=== PATIENT | female | born 2000 | race Caucasian/White ===

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

== ENCOUNTER → 2020-01-22 12:31 | Outpatient (CLI) | payer OTHER, MEDICAID, SELFPAY ==
[2018-06-24 08:27] VITALS: BMI 41.0
--- NOTE | 2020-01-22 | DI.US.S_ITS ---
ULTRASOUND OF RIGHT BREAST: 01/22/2020 CLINICAL: Mastodynia. No prior exams were available for comparison. Ultrasound of the right breast was performed on the area of interest. Aguilar scale images of the real-time examination were reviewed. IMPRESSION: NEGATIVE There is no sonographic evidence of malignancy. There is no sonographic abnormality seen in the right breast to correspond with the pain, however, clinical followup is recommended. This exam was interpreted at Station ID: [id number]. Electronically Signed By: Chary De La Torre M.D. lk/:01/22/2020 14:57:59 letter sent: Clinical Evaluation Ultrasound BI-RADS: 1 Negative
== END ==
PROVIDERS: Family Provider Pediatrics; PCP Pediatrics; Referring Provider Physician Assistant Medical; Visit Provider Physician Assistant Medical
DX: N64.4 Mastodynia (principal)
CPT/HCPCS: 76642

== ENCOUNTER 2021-03-11 21:42 | Emergency (ER) | payer OTHER, MEDICAID, SELFPAY ==
[2018-06-24 08:27] VITALS: BMI 41.0
[2021-03-11 21:45] VITALS: BP 119/64; PULSE 73; RESP 20; TEMP 36.6; O2SAT 98
--- NOTE | 2021-03-11 21:45 | DI.RAD.S_ITS ---
PROCEDURE: XR ANKLE RT MIN 3V INDICATIONS: rolled ankle TECHNIQUE: 3 views of the ankle were acquired. COMPARISON: None. FINDINGS: Bones: No fractures or dislocations. Ankle mortise is normally aligned. No suspicious bony lesions. Soft tissues: No tibiotalar joint effusion. Achilles tendon appears normal. IMPRESSION: Right ankle without acute fracture or dislocation. If there is persistent clinical concern for occult fracture given adequate mechanism of injury, consider repeat imaging in 10-14 days. Dictated by: Reese Wei M.D. on 03/11/2021 at 22:50 Approved by: Reese Wei M.D. on 03/11/2021 at 22:51
--- NOTE | 2021-03-12 01:28 | ED_ITS ---
HPI - Extremity Injury (Lower) General Chief Complaint: Extremity Injury, Lower Stated Complaint: rt ankle injury Time Seen by Provider: 03/12/21 01:24 Source: patient Mode of arrival: Ambulatory History of Present Illness HPI Narrative: Patient is a 20-year-old female here for evaluation of a right ankle injury. She states that 2 days ago she was walking [place] when she rolled her right ankle. She has been able to walk on it since then but has had discomfort in she thinks things have worsened since then. No prior injuries. Has not tried anything for the symptoms prior to arrival. Related Data Home Medications Medication Instructions Recorded Confirmed etonogestrel 68 mg subdermal SUBDERMAL 10/18/19 10/18/19 implant (Nexplanon) Allergies Allergy/AdvReac Type Severity Reaction Status Date / Time hydromorphone [From Dilaudid] Allergy Unknown Verified 10/18/19 08:24 Penicillins Allergy Unknown Verified 10/18/19 08:24 acetaminophen AdvReac Intermediate Nausea Verified 10/18/19 08:24 [From Tylenol-Codeine #3] codeine AdvReac Intermediate Nausea Verified 10/18/19 08:24 [From Tylenol-Codeine #3] Review of Systems Constitutional Constitutional: Reports as per HPI Musculoskeletal Comments: Right ankle pain and swelling Integumentary/Breasts Comments: No bruising to the right ankle Neurologic Comments: No tingling to the right lower extremity Hematologic/Lymphatic On Anticoagulants: No Patient History Medical History Depression Paratubal cyst (~06/2018) Surgical History Hx of appendectomy Social History household members: family Smoking Status: Current every day smoker alcohol intake: never Smoking Status: Current every day smoker tobacco type: vaping Substance Use Type: does not use Exam Initial Vital Signs Initial Vital Signs: Vital Signs Temperature 97.9 F 03/11/21 21:45 Pulse Rate 73 03/11/21 21:45 Respiratory Rate 20 03/11/21 21:45 Blood Pressure 119/64 03/11/21 21:45 Pulse Oximetry 98 03/11/21 21:45 Const General: cooperative and healthy appearing HENKY Head: normal to inspection and normocephalic Cardio Pulses: dorsalis pedis present on the right Skin General: no rashes or lesions noted Neuro Gait: normal gait Sensory Exam: no sensory deficits noted Extrem Other: Patient has no proximal fibula tenderness. Her right ankle is unremarkable except for tenderness inferior and posterior to the lateral malleolus. Procedures Orthopedic Splinting/Casting Injury #1: Side: right Lower Extremity Injury Location: ankle Lower Extremity Immobilizer: Raj wrap Post splinting neuro exam: intact Post splinting vascular exam: intact Placed by: Nursing Course Orders Ordered: ED Orders 03/11/21 21:45 XR ankle RT min 3V Stat Vital Signs Vital signs: Vital Signs - 8 hr 03/11/21 21:45 Temperature 97.9 F Pulse Rate 73 Respiratory Rate 20 Blood Pressure 119/64 Pulse Oximetry 98 MDM - Extremity Injury (Lower) Imaging Data Extremity x-ray #1: Radiologist's Impression: [address] [id number] ReportSigned Patient: Laura Martinez [facility]#: [id number]: 2000Acct:[id number]/Sex: 20 / FDate of Service: 03/11/21Loc: EDAccession Number: [id number] Procedure: XR ankle RT min 3V Ordering Provider: Jhonatan Abbasi D.O. PROCEDURE: XR ANKLE RT MIN 3V INDICATIONS: rolled ankle TECHNIQUE: 3 views of the ankle were acquired. COMPARISON: None. FINDINGS: Bones: No fractures or dislocations. Ankle mortise is normally aligned. No suspicious bony lesions. Soft tissues: No tibiotalar joint effusion. Achilles tendon appears normal. IMPRESSION: Right ankle without acute fracture or dislocation. If there is persistent clinical concern for occult fracture given adequate mechanism of injury, consider repeat imaging in 10-14 days. Dictated by: Reese Wei M.D. on 03/11/2021 at 22:50 Approved by: Reese Wei M.D. on 03/11/2021 at 22:51 [facility] Narrative Medical decision making narrative: Patient is neurovascularly intact. She is ambulatory. The x-ray shows no signs of fracture. She was placed in an Raj bandage and was given care instructions and return precautions. She expressed understanding and agreement. Discharge Plan Departure Patient Disposition: Home Clinical Impression: Ankle sprain and strain Instructions: DI for Ankle Sprain, How To Perform RICE (Rest, Ice, Compress, Elevate), How to Apply an Elastic Wrap on Ankle Activity Restrictions/Additional Instructions: There were no fractures noted on the x-rays which means you can walk on your leg as tolerated. I do recommend you keep your foot elevated and use ice several times a day. You can use the elastic bandage/ankle brace for support. Contact your primary provider for follow-up. Return to the emergency department for any new or worsening symptoms Prescriptions: No Action Nexplanon 68 mg implant subdermal RF: 0 Referrals: Cecy Sullivan MD [Primary Care Provider] -
== END 2021-03-12 01:53 | disposition home or self-care (01) ==
PROVIDERS: Emergency Provider Emergency Medicine; Family Provider Pediatrics; PCP Pediatrics
DX: S93.401A Sprain of unspecified ligament of right ankle, initial encounter (principal); X58.XXXA Exposure to other specified factors, initial encounter; Y93.01 Activity, walking, marching and hiking
CPT/HCPCS: 73610; 99282; 99283

== ENCOUNTER 2021-05-02 21:57 | Emergency (ER) | payer OTHER, MEDICAID, SELFPAY ==
[2018-06-24 08:27] VITALS: BMI 41.0
[2021-05-02 22:23] VITALS: BP 107/63; PULSE 60; RESP 18; TEMP 36.1; O2SAT 96
[2021-05-02] MEDS: SODIUM CHLORIDE 0.9% 1,000 ML 150 ML IV (23:12)
[2021-05-02 23:15] LABS: Add Manual Diff / Slide Review NO; Basophils Absolute Auto 100 /uL (0-100); Basophils Percent Auto 1.1 % (0-2); Eosinophils Absolute Auto 200 /uL (0-450); Eosinophils Percent Auto 2.4 % (2-4); Hematocrit 40.8 % (36-46); Hemoglobin 13.2 g/dL (12.0-16.0); Lymphocytes Absolute Auto 2600 /uL (1100-4500); Lymphocytes Percent Auto 34.1 % (25-40); Mean Corpuscular HGB Conc 32.3 % (30-36); Mean Corpuscular Hemoglobin 26.7 PG (26-34); Mean Corpuscular Volume 82.8 fL (80-100); Monocytes Absolute Auto 500 /uL (0-900); Monocytes Percent Auto 6.4 % (3-14); Neutrophils Absolute Auto 4200 /uL (1500-7000); Platelet Count 230 X10^3/uL (150-400); Red Blood Cell Count 4.93 X10^6/uL (4.0-5.2); Red Cell Distribution Width 14.1 % (11.6-14.8); White Blood Cell Count 7.5 X10^3/uL (4.5-11.0)
[2021-05-02 23:22] LABS: Alanine Aminotransferase 83 IU/L (<35); Albumin 4.4 g/dL (3.5-5.0); Albumin Globulin Ratio 1.4 (1.0-2.8); Alkaline Phosphatase 61 U/L (38-126); Aspartate Aminotransferase 51 IU/L (14-36); BUN Creatinine Ratio 16.7 (6-22); Bilirubin Total 0.4 mg/dL (0.2-1.3); Blood Urea Nitrogen 11 mg/dL (7-17); Calcium 9.3 mg/dL (8.4-10.2); Carbon Dioxide 25 mmol/L (22-32); Chloride 107 mmol/L (98-107); Estimated Glomerular Filt Rate > 60.0 mL/min (>60); Globulin 3.2 g/dL (1.7-4.1); Glucose 103 mg/dL (70-100); HEMOLYSIS < 15 (0-50); Lipase 85 U/L (23-300); Potassium 4.1 mmol/L (3.4-5.1); Sodium 139 mmol/L (137-145); Total Protein 7.6 g/dL (6.3-8.2)
--- NOTE | 2021-05-02 23:46 | ED_ITS ---
HPI - Nausea/Vomiting/Diarrhea General Chief complaint: Abdominal Pain Stated complaint: RT LOWER PAIN BLEEDING Time Seen by Provider: 05/02/21 23:02 Source: patient Mode of arrival: Ambulatory Limitations: no limitations History of Present Illness HPI Narrative: 20-year-old female nonsmoker with history of menorrhalgia, right ovarian trouble and depression right lower quadrant pain for the past day or 2. She states it came on gradually and has been worsening in her right lower quadrant and sometimes spreads across to the midline. Her pain is worse when she moves and improves with rest. She states stabbing and crampy in nature. She feels a bit weak and lightheaded as well as fatigued. She states that she has had vaginal bleeding for 3 of the past 4 weeks, it had slowed a bit after a visit to Gynecology, and ultrasound which was largely unremarkable, and a prescription of medroxyprogesterone. She just finished that 2 days ago and her bleeding and pain started soon thereafter. She is bleeding heavier than she ever has and states it takes about 30 minutes to saturate a super tampon and a pad and within an hour she soaks an adult diaper. She has been bleeding this heavily since yesterday. She has been NPO since 1400 Related Data Previous Rx's Medication Instructions Recorded medroxyprogesterone 10 mg tablet 10 mg PO DAILY #30 tab 05/01/21 medroxyprogesterone 10 mg tablet See Rx Instructions .ROUTE 05/03/21 .COMPLEX #74 tab Allergies Allergy/AdvReac Type Severity Reaction Status Date / Time hydromorphone [From Dilaudid] Allergy Unknown Verified 10/18/19 08:24 Penicillins Allergy Unknown Verified 10/18/19 08:24 acetaminophen AdvReac Intermediate Nausea Verified 10/18/19 08:24 [From Tylenol-Codeine #3] codeine AdvReac Intermediate Nausea Verified 10/18/19 08:24 [From Tylenol-Codeine #3] Review of Systems Review of Systems Narrative: GENERAL: Denies chills, fatigue, malaise, fever, sweats. HEENT: Denies sinus pain, ear pain, sore throat, difficulty swallowing, d izziness. RESPIRATORY: Denies dyspnea, cough, wheezing, hemoptysis, sputum. CARDIOVASCULAR: Denies chest pain, palpitations, orthopnea, edema, GASTROINTESTINAL: Denies nausea, vomiting, abdominal pain, diarrhea, constipation, melena. : See HPI MUSCULOSKELETAL: denies weakness, joint pain, or bony pain SKIN: Denies rash, skin lesions, or other NEUROLOGIC: Denies weakness, headache, numbness, change in speech, confusion, seizures, incoordination. PSYCHIATRIC: No concerning psychosocial issues. 12 point review of systems is negative except for those stated above Patient History Medical History Depression Paratubal cyst (~06/2018) Surgical History Hx of appendectomy Social History household members: family Smoking Status: Current every day smoker alcohol intake: never Smoking Status: Current every day smoker tobacco type: vaping Substance Use Type: does not use Exam Narrative Exam Narrative: GENERAL: [20] year old patient appears stated age. Well- developed patient, in mild distress. HEAD: Atraumatic. Normocephalic. EYES: Pupils equal round and reactive. Extraocular motions intact. No scleral icterus. No injection or drainage. ENT: Nose without bleeding, purulent drainage. Throat without erythema, tonsill ar hypertrophy or exudate. Airway patent. NECK: Trachea midline. Non tender CARDIOVASCULAR: Regular rate and rhythm without murmurs, gallops, or rubs. RESPIRATORY: Clear to auscultation. Breath sounds equal bilaterally. No wheezes, rales, or rhonchi. GASTROINTESTINAL: Abdomen soft, non-tender, nondistended. PELVIC: Brisk dark red bleeding vaginally, fresh blood on thighs and on sheet. Performed with patient permission and female nursing bacteriology research assistant at the bedside EXTREMITIES: No edema or joint tenderness. BACK: Nontender without deformity or crepitance. No flank tenderness. NEURO: AOx3. SKIN: No rash or erythema of visible areas Initial Vital Signs Initial Vital Signs: Vital Signs Temperature 96.9 F L 05/02/21 22:23 Pulse Rate 60 05/02/21 22:23 Respiratory Rate 18 05/02/21 22:23 Blood Pressure 107/63 05/02/21 22:23 Pulse Oximetry 96 05/02/21 22:23 Course Orders Ordered: ED Orders 05/02/21 23:04 Complete Blood Count AUTO DIFF Stat Comprehensive Metabolic Panel Stat Lipase Stat 05/03/21 00:01 US pelvic complete Stat 05/03/21 01:15 Urine Microscopic Stat Discontinued Medications Sodium Chloride (Normal Saline 0.9%) 1,000 mls @ 150 mls/hr IV CONT URSULA Last Admin: 05/02/21 23:12 Dose: 150 mls/hr Documented by: RONDA Ketorolac Tromethamine (Ketorolac 30 Mg/Ml Vial) 15 mg IV NOW ONE Stop: 05/02/21 23:53 Last Admin: 05/03/21 00:13 Dose: 15 mg Documented by: RONDA Medroxyprogesterone Acetate (Medroxyprogesterone Acetate 10 Mg Tablet) 20 mg PO NOW ONE Stop: 05/03/21 01:54 Last Admin: 05/03/21 02:14 Dose: 20 mg Documented by: LOGAN Ondansetron HCl (Ondansetron 4 Mg Odt Prepack) 1 bottle MISC SEEINSTR ONE Stop: 05/02/21 23:47 Last Admin: 05/03/21 01:07 Dose: Not Given Documented by: RONDA Consultations Consultation #1: Discussed with on-call gynecology, (Dr. Benavides) she has equally reassured by patient's stable vital signs and lab work. Recommends initiating medroxyprogesterone again, return precautions given and questions answered to her apparent satisfaction Vital Signs Vital signs: Vital Signs - 8 hr 05/02/21 22:23 05/03/21 02:19 Temperature 96.9 F L Pulse Rate 60 65 Respiratory Rate 18 20 Blood Pressure 107/63 99/56 L Pulse Oximetry 96 100 MDM - Nausea/Vomiting/Diarrhea Lab Data Result diagrams: 05/02/21 23:04 05/02/21 23:04 Labs: Lab Results 05/02/21 05/02/21 05/03/21 Range/Units 23:04 23:04 01:15 WBC 7.5 (4.5-11.0) X10^3/uL RBC 4.93 (4.0-5.2) X10^6/uL Hgb 13.2 (12.0-16.0) g/dL Hct 40.8 (36-46) % MCV 82.8 (80-100) fL MCH 26.7 (26-34) PG MCHC 32.3 (30-36) % RDW 14.1 (11.6-14.8) % Plt Count 230 (150-400) X10^3/uL Neut % (Auto) 56.0 (50-75) % Lymph % (Auto) 34.1 (25-40) % [place] % (Auto) 6.4 (3-14) % Eos % (Auto) 2.4 (2-4) % Baso % (Auto) 1.1 (0-2) % Neut # (Auto) 4200 (4631-4794) /uL Lymph # (Auto) 2600 (3804-3271) /uL [place] # (Auto) 500 (0-900) /uL Eos # (Auto) 200 (0-450) /uL Baso # (Auto) 100 (0-100) /uL Sodium 139 (137-145) mmol/L Potassium 4.1 (3.4-5.1) mmol/L Chloride 107 (98-107) mmol/L Carbon Dioxide 25 (22-32) mmol/L BUN 11 (7-17) mg/dL Creatinine 0.66 (0.52-1.04) mg/dL Estimated GFR > 60.0 (>60) mL/min BUN/Creatinine Ratio 16.7 (6-22) Glucose 103 H (70-100) mg/dL Calcium 9.3 (8.4-10.2) mg/dL Total Bilirubin 0.4 (0.2-1.3) mg/dL AST 51 H (14-36) IU/L ALT 83 H (<35) IU/L Alkaline Phosphatase 61 (38-126) U/L Total Protein 7.6 (6.3-8.2) g/dL Albumin 4.4 (3.5-5.0) g/dL Globulin 3.2 (1.7-4.1) g/dL Albumin/Globulin Ratio 1.4 (1.0-2.8) Lipase 85 (23-300) U/L Urine RBC 30-100/hpf H (0-5/HPF) Urine WBC None seen (0-5/HPF) Urine Bacteria None seen (None) Ur Culture Indicated? 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 I spoke with Dr. Benavides (Dr. Choudhury's partner) and she would like me to restart your medroxyprogesterone to be taken at as you had previously] *What to do: *Please continue to take your regular medications as directed. [x ] New medication prescriptions sent to your pharmacy: [[facility] ] [ ] New medication written as a paper prescription [ ] No new medications given *Please follow up with Dr. Choudhury as planned 2-3 days, Let them know you were seen in the Emergency Department and that we ask that you be seen in follow up. We will electronically transmit a record of today's note if your PCP is in our system *If you do not have a primary care provider please contact the [facility] Resource line at [phone]. They will ask some questions about your medical history and help get you set up with a doctor in the community. *Return to Emergency Department if you should have any new, worsening or concerning symptoms, such as [fever greater than 101 F, shaking chills, worsening pain, persistent vomitin, heavy bleeding sufficient to saturate a pad per hour for multiple hours Prescriptions: New medroxyprogesterone 10 mg tablet See Rx Instructions .ROUTE .COMPLEX Qty: 74 RF: 0 No Action medroxyprogesterone 10 mg tablet 10 mg PO DAILY Qty: 30 RF: 1 Referrals: Cecy Sullivan MD [Primary Care Provider] -
--- NOTE | 2021-05-03 00:01 | DI.US.S_ITS ---
PROCEDURE: US PELVIC COMPLETE INDICATIONS: HEAVY BLEEDING, RIGHT PELVIC PAIN TECHNIQUE: Real-time scanning was performed of the pelvic organs, with image documentation. Additional endovaginal scanning was necessary due to incomplete visualization of the adnexal and endometrial structures by transabdominal scanning. COMPARISON: [facility], US, US PELVIC COMPLETE, 09/20/2020, 15:47. FINDINGS: Uterus: Uterus is normal in size at 7.9 x 3.7 x 4.6 cm. The endometrium measures 15 mm in combined thickness. Ovaries: Right ovary measures 3.4 x 2.1 x 2.9 centimeter. Left ovary measures 3.0 x 1.7 x 2.7 centimeter. No suspicious mass. Normal spectral waveforms. Other: No pathologic free abdominal or pelvic fluid. IMPRESSION: No acute or suspicious abnormality. Endometrial thickness measures at the upper limits of normal. Note: No significant discrepancy in the preliminary report. Dictated by: Guy Zambrano M.D. on 05/03/2021 at 7:32 Approved by: Guy Zambrano M.D. on 05/03/2021 at 7:36
[2021-05-03] MEDS: KETOROLAC 30 MG/ML VIAL 15 MG IV (00:13)
[2021-05-03 01:34] LABS: Bacteria Urine None Seen; WBC Urine None Seen (0-5/HPF)
[2021-05-03 01:51] LABS: Culture Indicated Urine Cult Not Indicated; RBC Urine 30-100/HPF (0-5/HPF)
[2021-05-03] MEDS: MEDROXYPROGESTERONE ACETATE 10 MG TABLET 20 MG PO (02:14)
[2021-05-03 02:19] VITALS: BP 99/56; PULSE 65; RESP 20; O2SAT 100
--- NOTE | 2021-05-05 13:34 | PC.NURSE ---
late entry- per RN IV fluids were DC'd at 0200 prior to DC
== END 2021-05-03 02:21 | disposition home or self-care (01) ==
PROVIDERS: Emergency Provider Emergency Medicine; Family Provider Pediatrics; PCP Pediatrics
DX: N92.0 Excessive and frequent menstruation with regular cycle (principal); R10.31 Right lower quadrant pain
CPT/HCPCS: 36415; 76830; 76856; 80053; 81003; 81015; 83690; 85025; 96361; 96374; 99284; J1885

== ENCOUNTER 2021-05-04 16:00 | Emergency (ER) | payer OTHER, MEDICAID, SELFPAY ==
[2018-06-24 08:27] VITALS: BMI 41.0
[2021-05-04 16:15] VITALS: BP 127/74; PULSE 86; RESP 19; TEMP 36.8; O2SAT 99; BMI 45.4
[2021-05-04 17:01] LABS: COVID19 -Nasal RAPID Negative (Negative)
--- NOTE | 2021-05-04 17:45 | PC.NURSE ---
examination done by provider
--- NOTE | 2021-05-04 20:11 | ED.URI ---
HPI - URI/Sore Throat <Miguel Angel Kelly PA-C - Last Filed: 05/04/21 20:21> General Chief Complaint: Upper Respiratory Symptoms Stated Complaint: HEADACHE BODY ACHES FATIGUE Time Seen by Provider: 05/04/21 16:32 Source: patient Mode of arrival: Family Vehicle Limitations: no limitations History of Present Illness HPI Narrative: 20-year-old female with a history of menorrhagia presents to the ED with 2 days of headache, body aches, fatigue. Patient endorses exposure to COVID-19 infection, is not vaccinated for COVID-19. Denies fever, chills, chest pain, shortness of breath, nausea, vomiting, lightheadedness, syncope. Denies visual disturbances. Related Data Previous Rx's Medication Instructions Recorded medroxyprogesterone 10 mg tablet 10 mg PO DAILY #30 tab 05/01/21 medroxyprogesterone 10 mg tablet See Rx Instructions .ROUTE 05/03/21 .COMPLEX #74 tab Allergies Allergy/AdvReac Type Severity Reaction Status Date / Time hydromorphone [From Dilaudid] Allergy Unknown Verified 05/04/21 16:23 Penicillins Allergy Unknown Verified 05/04/21 16:23 acetaminophen AdvReac Intermediate Nausea Verified 05/04/21 16:23 [From Tylenol-Codeine #3] codeine AdvReac Intermediate Nausea Verified 05/04/21 16:23 [From Tylenol-Codeine #3] Review of Systems <Miguel Angel Kelly PA-C - Last Filed: 05/04/21 20:21> Constitutional Constitutional: Reports body ache(s), Denies chills, Denies fatigue, Denies fever(s), Denies frequent falls, Reports headache(s), Denies lethargy, Reports malaise and Denies weakness Comments: body aches Eyes Eyes: Denies change in vision, Denies eye discharge, Denies irritation and Denies loss of vision ENT Ears, Nose, Mouth, and Throat: Denies change in voice, Denies dizziness, Reports headache(s), Denies neck pain, Denies sore throat and Denies throat swelling Cardiovascular Cardiovascular: Denies chest pain, Denies irregular heart rhythm, Denies lightheadedness, Denies palpitations, Denies dyspnea, Denies dyspnea on exertion and Denies orthopnea Respiratory Respiratory: Denies cough, Denies dyspnea, Denies dyspnea on exertion and Denies wheezing Gastrointestinal Gastrointestinal: Denies abdominal pain, Denies change in bowel habits, Denies diarrhea, Denies nausea and Denies vomiting Musculoskeletal Musculoskeletal: Denies neck pain and Denies numbness Integumentary/Breasts Skin/Breast: Denies pruritus, Denies erythema, Denies rash and Denies wounds Neurologic Neurologic: Denies behavioral changes, Denies confusion, Denies dizziness, Denies frequent falls, Reports headache(s), Denies loss of vision, Denies numbness and Denies weakness Psychiatric Psychiatric: Denies anxiety, Denies behavioral changes, Denies confusion, Denies depression, Denies homicidal ideation and Denies suicidal ideation Endocrine Endocrine: Denies fatigue, Denies flushing and Denies palpitations Hematologic/Lymphatic Hematologic/Lymphatic: Denies easy bruising Allergic/Immunologic Allergic/Immunologic: Denies urticaria, Denies throat swelling and Denies wheezing Patient History <Miguel Angel Kelly PA-C - Last Filed: 05/04/21 20:21> Medical History Depression Paratubal cyst (~06/2018) Surgical History Hx of appendectomy Social History household members: family Smoking Status: Current every day smoker alcohol intake: never Smoking Status: Current every day smoker tobacco type: cigarettes and vaping alcohol intake frequency: a few times a month Substance Use Type: marijuana Exam <Miguel Angel Kelly PA-C - Last Filed: 05/04/21 20:21> Initial Vital Signs Initial Vital Signs: Vital Signs Temperature 98.2 F 05/04/21 16:15 Pulse Rate 86 05/04/21 16:15 Respiratory Rate 19 05/04/21 16:15 Blood Pressure 127/74 05/04/21 16:15 Pulse Oximetry 99 05/04/21 16:15 Const General: cooperative HENMT Head: normocephalic and atraumatic Ears: external ears normal and TM's normal bilaterally Nose: external nose normal and No nasal discharge Face and sinus: sinuses nontender, face symmetric, no sinus tenderness and No dry mucous membranes Mouth: oral mucosae normal and moist mucous membranes Teeth and gingiva: dentition normal Throat: tonsils normal and uvula midline Eyes General: appearance normal, both eyes and all related structures Eyelids: eyelids normal Conjunctivae: conjunctivae normal Sclera: sclerae normal Pupils: PERRL EOM: EOM intact bilaterally Neck Neck: normal visual inspection, trachea midline, No lymphadenopathy, No midline deformity and No JVD Lymphatic: No lymphedema Chest Chest: normal inspection of the chest Resp Effort & Inspection: normal respiratory effort, able to speak in complete sentences, no respiratory distress and no use of accessory muscles Auscultation: clear to auscultation bilaterally, no rales, no rhonchi and no wheezes Cardio Rate: regular rate Rhythm: regular rhythm Heart Sounds: no click, no gallops, no murmurs and no rubs Pulses: normal peripheral pulses GI Inspection: non-distended Palpation: soft, no hepatosplenomegaly, No guarding, No pulsatile mass and No tender Auscultation: normal bowel sounds Back/Spine/Pelvis Back: No CVA tenderness Cervical Spine: cervical ROM normal and No pain with cervical ROM Thoracic/Lumbar Spine: thoracic and lumbar spine normal to inspection Skin General: no rashes or lesions noted, No jaundice and No petechiae Neuro General: patient alert, patient oriented x3, gait normal, no meningeal signs, no focal motor deficits and CN's II-XI intact bilaterally Cranial Nerves: CN's II-XI intact bilaterally Speech: speech normal Gait: normal gait Other: Neurologically intact, CN 1 through 12 intact, gait normal, negative cerebellar signs, negative temporal tenderness. Extrem General: full ROM, no clubbing, cyanosis or edema, no pedal edema and no calf tenderness Psych Appearance: well kempt Mental Status: mental status grossly normal Attitude: cooperative Thought Content: normal and suicidality Judgment: judgment good <Britney Castanon DO - Last Filed: 05/05/21 07:40> Initial Vital Signs Initial Vital Signs: Vital Signs Temperature 98.2 F 05/04/21 16:15 Pulse Rate 86 05/04/21 16:15 Respiratory Rate 19 05/04/21 16:15 Blood Pressure 127/74 05/04/21 16:15 Pulse Oximetry 99 05/04/21 16:15 Course <Miguel Angel Kelly PA-C - Last Filed: 05/04/21 20:21> Orders Ordered: ED Orders 05/04/21 16:20 COVID19 -Nasal swab/Pre-Proc Stat Vital Signs Vital signs: Vital Signs - 8 hr 05/04/21 16:15 Temperature 98.2 F Pulse Rate 86 Respiratory Rate 19 Blood Pressure 127/74 Pulse Oximetry 99 <DO Molly Haywood Last Filed: 05/05/21 07:40> Orders Ordered: ED Orders 05/04/21 16:20 COVID19 -Nasal swab/Pre-Proc Stat Vital Signs Vital signs: Vital Signs - 8 hr 05/04/21 16:15 Temperature 98.2 F Pulse Rate 86 Respiratory Rate 19 Blood Pressure 127/74 Pulse Oximetry 99 MDM - URI/Sore Throat <Miguel Angel Kelly PA-C - Last Filed: 05/04/21 20:21> Lab Data Lab results narrative: Covid-19 positive Labs: Lab Results 05/04/21 Range/Units 16:20 SARS-CoV-2 (PCR) Negative (Negative) MDM Narrative Medical decision making narrative: 20-year-old female with a history of menorrhagia presents to the ED with 2 days of headache, body aches, fatigue. Concern for COVID-19 infection versus other viral syndrome versus primary headache. Will test for COVID-19, discharged home with ED return precautions. <DO Molly Haywood Last Filed: 05/05/21 07:40> Lab Data Labs: Lab Results 05/04/21 Range/Units 16:20 SARS-CoV-2 (PCR) Negative (Negative) Discharge Plan Departure Patient Disposition: Home Clinical Impression: Viral infection Instructions: DI for COVID-19 (Suspected or Confirmed ), Coronavirus Disease 2019, Can COVID-19 be prevented? Activity Restrictions/Additional Instructions: Return to the emergency department if increasing shortness of breath or chest pain. Take ibuprofen or Tylenol for fever, aches and pains. Retest for COVID-19 in 2 days. In the meanwhile, quarantine and continue handwashing and mask use Prescriptions: No Action medroxyprogesterone 10 mg tablet 10 mg PO DAILY Qty: 30 RF: 1 medroxyprogesterone 10 mg tablet See Rx Instructions .ROUTE .COMPLEX Qty: 74 RF: 0 Referrals: Cecy Sullivan MD [Primary Care Provider] - <Britney Botnick, DO - Last Filed: 05/05/21 07:40> Sign Out Provider Sign Out Attestation: I was immediately available in the department for consultation. Documentation has been reviewed. I agree with assessment and plan.
== END 2021-05-04 18:12 | disposition home or self-care (01) ==
PROVIDERS: Emergency Medicine; Emergency Provider Student in an Organized Health Care Education/Training Program; Family Provider Pediatrics; PCP Pediatrics
DX: B34.9 Viral infection, unspecified (principal); Z20.822 Contact with and (suspected) exposure to COVID-19
CPT/HCPCS: 87635; 99281; 99282; C9803

== ENCOUNTER → 2021-09-11 20:20 | Outpatient (CLI) | payer OTHER, MEDICAID, SELFPAY ==
[2018-06-24 08:27] VITALS: BMI 41.0
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
== END ==
PROVIDERS: Family Provider Pediatrics; PCP Pediatrics; Referring Provider Pediatrics; Visit Provider Pediatrics
DX: S49.92XA Unspecified injury of left shoulder and upper arm, initial encounter (principal); M79.601 Pain in right arm; M21.921 Unspecified acquired deformity of right upper arm; V89.9XXA Person injured in unspecified vehicle accident, initial encounter
CPT/HCPCS: 73060; 73080; 73090

== ENCOUNTER → 2021-09-15 10:25 | Outpatient (CLI) | payer OTHER, MEDICAID, SELFPAY ==
[2018-06-24 08:27] VITALS: BMI 41.0
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
== END ==
PROVIDERS: Family Provider Pediatrics; PCP Pediatrics; Referring Provider Pediatrics; Visit Provider Pediatrics
DX: M25.551 Pain in right hip (principal); M25.552 Pain in left hip
CPT/HCPCS: 73521

== ENCOUNTER 2022-05-19 21:18 | Emergency (ER) | payer OTHER, MEDICAID, SELFPAY ==
[2022-01-30 12:45] VITALS: BMI 41.0
[2022-05-19 21:24] VITALS: BP 129/82; PULSE 99; RESP 18; TEMP 37.2; O2SAT 97
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
[2022-05-19] MEDS: OXYCODONE/APAP 5/325 PREPACK 1 BOTTLE MISC (23:11)
== END 2022-05-19 23:13 | disposition home or self-care (01) ==
PROVIDERS: Emergency Provider Emergency Medicine; Family Provider Pediatrics; PCP Pediatrics
DX: M25.551 Pain in right hip (principal)
CPT/HCPCS: 99281; 99283

== ENCOUNTER 2022-08-05 19:19 | Emergency (ER) | payer OTHER, MEDICAID, SELFPAY ==
[2022-01-30 12:45] VITALS: BMI 41.0
[2022-08-05 19:26] VITALS: BP 132/57; PULSE 82; RESP 16; TEMP 36.2; O2SAT 99; BMI 47.9
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
[2022-08-05 21:14] VITALS: BP 111/75; PULSE 67; RESP 16; O2SAT 100
== END 2022-08-05 21:16 | disposition home or self-care (01) ==
PROVIDERS: Emergency Provider Emergency Medicine; Family Provider Pediatrics; PCP Pediatrics
DX: T79.2XXA Traumatic secondary and recurrent hemorrhage and seroma, initial encounter (principal)
CPT/HCPCS: 99281

== ENCOUNTER → 2022-08-11 16:38 | Outpatient (CLI) | payer OTHER, MEDICAID, SELFPAY ==
[2022-01-30 12:45] VITALS: BMI 41.0
--- NOTE | 2022-08-11 | DI.MRI.S_ITS ---
PROCEDURE: MR ELBOW LT W CON INDICATIONS: TENDINOPATHY OF LEFT BICEPS TECHNIQUE: Noncontrast coronal proton density fast spin echo and T2 fast spin echo with fat saturation, axial and sagittal T1 spin echo and T2 fast spin echo with fat saturation through the elbow. COMPARISON: None. FINDINGS: Image quality: Excellent. Lateral structures: The lateral ulnar collateral ligament and radial collateral ligament both appear intact. The overlying common extensor tendon also appears normal. Medial structures: The ulnar collateral ligament appears intact. The overlying common flexor tendon appears normal. The ulnar nerve appears normal in size and signal within the cubital tunnel. Anterior structures: Distal biceps tendon is mildly thickened at its insertion on proximal radius with subtle intrasubstance T2 hyperintense signal. No bicipitoradial bursal fluid. Distal brachialis tendon is intact. The median and radial neurovascular bundles appear normal; no focal muscle atrophy to suggest nerve impingement. Posterior structures: The conjoint triceps tendon from the long and lateral heads appears intact. The medial head of the triceps tendon also appears normal, with direct muscle insertion onto the olecranon. No olecranon bursal fluid. Bone and cartilage: No bone marrow contusions or fractures. No osteochondral injuries. IMPRESSION: 1. Tendinosis and very low-grade intrasubstance partial-thickness tear involving distal biceps tendon at its insertion on proximal radius. No biceps tendon rupture. Distal brachialis tendon is intact. 2. No marrow edema. No fracture or dislocation. No suspicious bony lesions. New line 3. Medial and lateral elbow tendons and ligaments are intact. Dictated by: Sukhi Peters M.D. on 08/12/2022 at 9:03 Approved by: Sukhi Peters M.D. on 08/12/2022 at 9:40
== END ==
PROVIDERS: Family Provider Pediatrics; PCP Pediatrics; Referring Provider Orthopaedic Surgery; Visit Provider Orthopaedic Surgery
DX: S46.212A Strain of muscle, fascia and tendon of other parts of biceps, left arm, initial encounter (principal); M67.922 Unspecified disorder of synovium and tendon, left upper arm
CPT/HCPCS: 73221

== ENCOUNTER 2024-01-26 18:17 | Emergency (ER) | payer OTHER, MEDICAID, SELFPAY ==
[2022-01-30 12:45] VITALS: BMI 41.0
[2024-01-26 18:21] VITALS: BP 131/72; PULSE 73; RESP 18; TEMP 36.4; O2SAT 100; BMI 45.4
--- NOTE | 2024-01-26 19:44 | ED.GENADULT ---
HPI - General Adult General Chief complaint: Abdominal Pain Stated complaint: IUD is stuck, pain Time Seen by Provider: 01/26/24 18:36 Source: patient Mode of arrival: Ambulatory History of Present Illness HPI narrative: Patient is a 23-year-old female who came to the emergency department here after being seen at an outside emergency department earlier today. She went to the outside emergency department because of abdominal pain and cramping and nausea. She had an ultrasound performed. It showed that the IUD was in the lower uterine segment and the cervix. According to the patient in the notes that were reviewed they attempted to remove the IUD however they were unable to do so. According to her discharge instructions they stated that she would benefit by seeing a repairer hairspring outpatient to have it removed. She presents to the emergency department here stating that she was told to come to the emergency department. She was having lower abdominal discomfort. She would labs performed earlier today which showed a unremarkable CBC unremarkable urine, unremarkable CMP and a negative test. Related Data Home Medications Medication Instructions Recorded Confirmed No Known Home Medications 02/06/22 02/06/22 Allergies Allergy/AdvReac Type Severity Reaction Status Date / Time hydromorphone [From Dilaudid] Allergy Unknown Verified 01/26/24 18:24 Penicillins Allergy Unknown Verified 01/26/24 18:24 acetaminophen AdvReac Intermediate Nausea Verified 01/26/24 18:24 [From Tylenol-Codeine #3] codeine AdvReac Intermediate Nausea Verified 01/26/24 18:24 [From Tylenol-Codeine #3] Review of Systems Constitutional Constitutional: Reports system reviewed and no additional complaints, except as documented Gastrointestinal Gastrointestinal: Reports system reviewed and no additional complaints, except as documented Genitourinary Genitourinary: Reports system reviewed and no additional complaints, except as documented Patient History Medical History Paratubal cyst (~06/2018) Depression Surgical History Hx of appendectomy Social History household members: family Smoking Status: Current every day smoker alcohol intake: never Smoking Status: Current every day smoker tobacco type: cigarettes and vaping alcohol intake frequency: a few times a month Substance Use Type: marijuana Exam Initial Vital Signs Initial Vital Signs: Vital Signs Temperature 97.5 F L 01/26/24 18:21 Pulse Rate 73 01/26/24 18:21 Respiratory Rate 18 01/26/24 18:21 Blood Pressure 131/72 01/26/24 18:21 Pulse Oximetry 100 01/26/24 18:21 Oxygen Delivery Method Room Air 01/26/24 18:21 Const General: cooperative and comfortable HENMT Head: normal to inspection Resp Effort & Inspection: normal respiratory effort Cardio Rate: regular rate GI Inspection: normal to inspection Course Vital Signs Vital signs: Vital Signs - 8 hr 01/26/24 18:21 01/26/24 20:00 Temperature 97.5 F L Pulse Rate 73 68 Respiratory Rate 18 18 Blood Pressure 131/72 123/72 Pulse Oximetry 100 100 Oxygen Delivery Method Room Air Room Air Medical Decision Making Medical Records Medical records reviewed: Yes I reviewed the patient's medical records. MDM Narrative Medical decision making narrative: No further workup required in this emergency department. She has had an ultrasound which shows the IUD in the lower uterine segment. Had unremarkable labs. Negative test. She would benefit from seeing a repairer hairspring however this does not need to happen emergently. The IUD has been in place for 2 years. There was an attempt to remove it at the prior emergency department they were unsuccessful. There was no indication for an emergent molding machine operator helper consultation. I discuss this with the patient. She was given information to make contact with our local molding machine operator helper to have it removed as an outpatient. Discharge Plan Departure Patient Disposition: Home Clinical Impression: Pelvic pain, IUD complication Activity Restrictions/Additional Instructions: I do recommend that you contact the OB Department here at the hospital with the number provided below to schedule a follow-up visit have the IUD removed. Return to the emergency department for new or worsening symptoms. Prescriptions: No Action No Known Home Medications Referrals: Cecy Sullivan MD [Primary Care Provider] - Manuela Cota MD [Physician] - Stand Alone Forms: Patient Portal/API
[2024-01-26 20:00] VITALS: BP 123/72; PULSE 68; RESP 18; O2SAT 100
== END 2024-01-26 19:59 | disposition home or self-care (01) ==
PROVIDERS: Emergency Provider Emergency Medicine; Family Provider Pediatrics; PCP Pediatrics
DX: R10.2 Pelvic and perineal pain (principal); T83.89XA Other specified complication of genitourinary prosthetic devices, implants and grafts, initial encounter
CPT/HCPCS: 99281; 99282

== ENCOUNTER 2024-08-21 14:47 | Emergency (ER) | payer OTHER, SELFPAY ==
[2022-01-30 12:45] VITALS: BMI 41.0
[2024-08-21 14:54] VITALS: BP 129/81; PULSE 72; RESP 17; TEMP 36.4; O2SAT 100; BMI 43.8
[2024-08-21 15:58] LABS: Add Manual Diff / Slide Review NO; Basophils Absolute Auto 100 /uL (0-100); Eosinophils Absolute Auto 200 /uL (0-450); Eosinophils Percent Auto 1.9 % (2-4); Hematocrit 42.6 % (36-46); Lymphocytes Absolute Auto 2700 /uL (1100-4500); Lymphocytes Percent Auto 22.2 % (25-40); Mean Corpuscular HGB Conc 32.9 % (30-36); Mean Corpuscular Hemoglobin 27.6 PG (26-34); Monocytes Absolute Auto 800 /uL (0-900); Monocytes Percent Auto 6.6 % (3-14); Neutrophils Absolute Auto 8400 /uL (1500-7000); Neutrophils Percent Auto 68.3 % (50-75); Platelet Count 266 X10^3/uL (150-400); Red Blood Cell Count 5.08 X10^6/uL (4.0-5.2); Red Cell Distribution Width 14.2 % (11.6-14.8); White Blood Cell Count 12.3 X10^3/uL (4.5-11.0)
[2024-08-21 16:10] LABS: BUN Creatinine Ratio 11.7 (6-22); Blood Urea Nitrogen 9 mg/dL (7-17); Calcium 9.1 mg/dL (8.4-10.2); Carbon Dioxide 25 mmol/L (22-32); Chloride 106 mmol/L (98-107); Estimated Glomerular Filt Rate > 60 mL/min (>60); Glucose 88 mg/dL (70-100); HEMOLYSIS < 15 (0-50); Potassium 3.8 mmol/L (3.4-5.1); Sodium 138 mmol/L (137-145)
[2024-08-21 18:01] VITALS: BP 134/69; PULSE 62; O2SAT 100
--- NOTE | 2024-08-21 18:05 | DI.US.S_ITS ---
PROCEDURE: US PELVIC COMPLETE INDICATIONS: Vaginal bleeding TECHNIQUE: Real-time scanning was performed of the pelvic organs, with image documentation. Additional endovaginal scanning was necessary due to incomplete visualization of the adnexal and endometrial structures by transabdominal scanning. COMPARISON: [facility], US, US PELVIC COMPLETE, 02/06/2022, 14:59. FINDINGS: Uterus: Uterus is anteverted and normal in size at 8.0 x 4.5 x 3.6 cm. The myometrium is homogeneous. The endometrium measures 10 mm combined thickness. Mobile debris within the endometrium, likely hemorrhagic products. Ovaries: The right ovary measures 3.6 x 2.7 x 3.2 cm, with a calculated ovarian volume of 16 cc. The left ovary measures 2.1 x 1.7 x 1.9 cm, with a calculated ovarian volume of 4 cc. The ovaries have a normal sonographic appearance. Less than 12 follicles can be seen in each ovary. No adnexal masses are seen. Right ovarian hemorrhagic follicle. Other: No pathologic free abdominal or pelvic fluid. IMPRESSION: Mild thickening of the endometrium, measuring 10 mm. There is hemorrhagic debris within the endometrium. We strive to produce accurate, complete, and clear reports of imaging services. To assist us in improving patient care, this report was composed using standard report templates and voice recognition software. Therefore, it may contain abnormal punctuation, insertions and/or omissions. Occasional wrong-word or sound-alike substitutions may occur. Though we review the report and make efforts to correct it, we do recommend that the report be read carefully in proper context to recognize any text inaccuracies. Dictated by: Dain Dial M.D. on 08/21/2024 at 20:02 Approved by: Dain Dial M.D. on 08/21/2024 at 20:05
[2024-08-21 18:51] LABS: Pregnancy Test Serum,Qual Negative (Negative)
--- NOTE | 2024-08-21 20:18 | ED.GENADULT ---
HPI - General Adult General Chief complaint: Vaginal Bleeding Stated complaint: sent by doc, period for 2 months Time Seen by Provider: 08/21/24 18:04 Source: patient Mode of arrival: Ambulatory Limitations: no limitations History of Present Illness HPI narrative: Patient is a 23-year-old female. Recently had a Mirena IUD removed. She states that prior to having the Mirena placed she was fairly irregular with her menstrual cycles. She did not have any menstrual cycles while having the IUD in place but has since had a removed because there is a desire to become . She states she would have to regular menstrual cycle since having the IUD removed however has had persistent bleeding for the past several weeks. No urinary symptoms. No change in bowel habits. Related Data Allergies Allergy/AdvReac Type Severity Reaction Status Date / Time hydromorphone [From Dilaudid] Allergy Unknown Chest Pain Verified 08/21/24 14:54 Penicillins Allergy Unknown Childhood Verified 08/21/24 14:54 Rxn, unknown codeine AdvReac Intermediate Nausea Verified 08/21/24 14:54 [From Tylenol-Codeine #3] Review of Systems Review of Systems ROS Unobtainable: All systems reviewed & are unremarkable except as noted in HPI and below Patient History Medical History Paratubal cyst (~06/2018) Depression Surgical History Hx of appendectomy Social History household members: family Smoking Status: Current every day smoker alcohol intake: never Smoking Status: Current every day smoker tobacco type: cigarettes and vaping alcohol intake frequency: a few times a month Exam Initial Vital Signs Initial Vital Signs: Vital Signs Temperature 97.6 F 08/21/24 14:54 Pulse Rate 72 08/21/24 14:54 Respiratory Rate 17 08/21/24 14:54 Blood Pressure 129/81 08/21/24 14:54 Pulse Oximetry 100 08/21/24 14:54 Oxygen Delivery Method Room Air 08/21/24 14:54 Const General: cooperative and comfortable Resp Effort & Inspection: normal respiratory effort Cardio Rate: regular rate GI Inspection: non-distended Skin General: no rashes or lesions noted Course Orders Ordered: ED Orders 08/21/24 18:05 US pelvic complete Stat Vital Signs Vital signs: Vital Signs - 8 hr 08/21/24 18:01 08/21/24 18:01 08/21/24 20:28 Pulse Rate 62 77 Blood Pressure 134/69 Pulse Oximetry 100 99 08/21/24 20:29 08/21/24 20:29 08/21/24 20:30 Pulse Rate 74 73 Blood Pressure 131/81 Pulse Oximetry 98 99 Medical Decision Making Lab Data Lab results reviewed: Yes I reviewed the patient's lab results. 08/21/24 15:35 08/21/24 15:35 Labs: Lab Results 08/21/24 08/21/24 Range/Units 15:35 15:40 WBC 12.3 H (4.5-11.0) X10^3/uL RBC 5.08 (4.0-5.2) X10^6/uL Hgb 14.0 (12.0-16.0) g/dL Hct 42.6 (36-46) % MCV 84.0 (80-100) fL MCH 27.6 (26-34) PG MCHC 32.9 (30-36) % RDW 14.2 (11.6-14.8) % Plt Count 266 (150-400) X10^3/uL Neut % (Auto) 68.3 (50-75) % Lymph % (Auto) 22.2 L (25-40) % [place] % (Auto) 6.6 (3-14) % Eos % (Auto) 1.9 L (2-4) % Baso % (Auto) 1.0 (0-2) % Neut # (Auto) 8400 H (4682-0537) /uL Lymph # (Auto) 2700 (9165-9284) /uL [place] # (Auto) 800 (0-900) /uL Eos # (Auto) 200 (0-450) /uL Baso # (Auto) 100 (0-100) /uL Sodium 138 (137-145) mmol/L Potassium 3.8 (3.4-5.1) mmol/L Chloride 106 (98-107) mmol/L Carbon Dioxide 25 (22-32) mmol/L BUN 9 (7-17) mg/dL Creatinine 0.77 (0.52-1.04) mg/dL Estimated GFR > 60 (>60) mL/min BUN/Creatinine Ratio 11.7 (6-22) Glucose 88 (70-100) mg/dL Calcium 9.1 (8.4-10.2) mg/dL Serum , Qual Negative (Negative) Blood Type O Negative Antibody Screen Negative Imaging Data US - LABORATORY OPERATIONS COORDINATOR: Radiologist's Impression: PROCEDURE: US PELVIC COMPLETE INDICATIONS: Vaginal bleeding TECHNIQUE: Real-time scanning was performed of the pelvic organs, with image documentation. Additional endovaginal scanning was necessary due to incomplete visualization of the adnexal and endometrial structures by transabdominal scanning. COMPARISON: [facility], US, US PELVIC COMPLETE, 02/06/2022, 14:59. FINDINGS: Uterus: Uterus is anteverted and normal in size at 8.0 x 4.5 x 3.6 cm. The myometrium is homogeneous. The endometrium measures 10 mm combined thickness. Mobile debris within the endometrium, likely hemorrhagic products. Ovaries: The right ovary measures 3.6 x 2.7 x 3.2 cm, with a calculated ovarian volume of 16 cc. The left ovary measures 2.1 x 1.7 x 1.9 cm, with a calculated ovarian volume of 4 cc. The ovaries have a normal sonographic appearance. Less than 12 follicles can be seen in each ovary. No adnexal masses are seen. Right ovarian hemorrhagic follicle. Other: No pathologic free abdominal or pelvic fluid. IMPRESSION: Mild thickening of the endometrium, measuring 10 mm. There is hemorrhagic debris within the endometrium. MDM Narrative Medical decision making narrative: Despite the bleeding she was having she was not anemic to the point they require any blood transfusions. Her pelvic ultrasound is relatively unremarkable. The rest of her labs are unremarkable as well. We did discuss the possibility of starting on an oral with control pill to try to help regulate the bleeding however she states that her ultimate desire is to actually become and starting on control would hinder that possibility. Will have her contact her OB doctor for a follow-up. She was given return precautions. She expressed understanding and agreement. Discharge Plan Departure Patient Disposition: Home Clinical Impression: Menorrhagia Instructions: DI for Vaginal Bleeding Activity Restrictions/Additional Instructions: Recommend that you contact your locker room supervisor provider to discuss further evaluation and treatment return to the emergency department for new or worsening symptoms. Referrals: Miscellaneous,[facility] [Primary Care Provider] - Stand Alone Forms: Patient Portal/API/Survey
[2024-08-21 20:28] VITALS: PULSE 77; O2SAT 99
[2024-08-21 20:29] VITALS: BP 131/81; PULSE 74; O2SAT 98
[2024-08-21 20:30] VITALS: PULSE 73; O2SAT 99
== END 2024-08-21 20:34 | disposition home or self-care (01) ==
PROVIDERS: Emergency Medicine; Emergency Provider Emergency Medicine; Family Provider Pediatrics
DX: N92.0 Excessive and frequent menstruation with regular cycle (principal)
CPT/HCPCS: 36415; 76830; 76856; 80048; 84703; 85025; 86850; 86900; 86901; 99284

== ENCOUNTER → 2025-01-19 08:26 | Outpatient (CLI) | payer OTHER, MEDICAID, SELFPAY ==
[2022-01-30 12:45] VITALS: BMI 41.0
== END ==
LOC: LAB 08:34
PROVIDERS: Family Provider Pediatrics; Visit Provider Obstetrics & Gynecology
DX: Z34.80 Encounter for supervision of other normal pregnancy, unspecified trimester (principal)
CPT/HCPCS: 87086

== ENCOUNTER → 2025-01-19 09:05 | Outpatient (CLI) | payer OTHER, SELFPAY ==
[2022-01-30 12:45] VITALS: BMI 41.0
[2025-01-19 10:19] LABS: Hemoglobin A1C% w Est Avg Glu 4.5 % (4.0-6.0)
[2025-01-19 10:23] LABS: Add Manual Diff / Slide Review NO; Basophils Absolute Auto 100 /uL (0-100); Basophils Percent Auto 0.7 % (0-2); Eosinophils Absolute Auto 100 /uL (0-450); Eosinophils Percent Auto 1.1 % (2-4); Hematocrit 38.6 % (36-46); Lymphocytes Absolute Auto 1600 /uL (1100-4500); Lymphocytes Percent Auto 15.8 % (25-40); Mean Corpuscular HGB Conc 33.6 % (30-36); Mean Corpuscular Hemoglobin 27.9 PG (26-34); Mean Corpuscular Volume 82.9 fL (80-100); Monocytes Absolute Auto 600 /uL (0-900); Monocytes Percent Auto 6.1 % (3-14); Neutrophils Absolute Auto 7800 /uL (1500-7000); Neutrophils Percent Auto 76.3 % (50-75); Platelet Count 192 X10^3/uL (150-400); Red Blood Cell Count 4.66 X10^6/uL (4.0-5.2); Red Cell Distribution Width 15.7 % (11.6-14.8); White Blood Cell Count 10.2 X10^3/uL (4.5-11.0)
[2025-01-19 10:29] LABS: Natera Collection Specimen Collected
[2025-01-19 11:02] LABS: Hepatitis B Surface Antigen NEGATIVE s/c (NEGATIVE); Rubella Antibody IgG 7.7 IU/mL (>15)
[2025-01-19 11:16] LABS: HIV 1 & 2 Ab/Ag 4th Gen Combo NEGATIVE (NEGATIVE); Hep C Virus Ab w/Reflex Quant NEGATIVE s/c (NEGATIVE)
[2025-01-20 05:12] LABS: RPR Screen Non Reactive (Non Reactive)
[2025-01-20 08:39] LABS: Varicella IgG Antibody Reactive (Non Reactive)
== END ==
PROVIDERS: Family Provider Pediatrics; Referring Provider Obstetrics & Gynecology; Visit Provider Obstetrics & Gynecology
DX: O99.210 Obesity complicating pregnancy, unspecified trimester (principal); Z3A.10 10 weeks gestation of pregnancy
CPT/HCPCS: 36415; 80055; 83036; 86787; 86803; 86850; 86900; 86901; 87086; 87389

== ENCOUNTER → 2025-04-02 14:52 | Outpatient (CLI) | payer OTHER, SELFPAY ==
[2022-01-30 12:45] VITALS: BMI 41.0
--- NOTE | 2025-04-02 14:53 | DI.US.S_ITS ---
PROCEDURE: US OB <= 14 WEEKS FETUS INDICATIONS: 20 week anatomy scan OUTSIDE/PRIOR DATING DATA: The calculations are made using the clinical OLIVIA of 08/15/2025. TECHNIQUE: Real-time scanning was performed of the fetus, with image documentation and biometric measurements. Endovaginal scanning: Not performed COMPARISON: None. FINDINGS: General: A single living intrauterine gestation is present. Presentation: Vertex. Placenta: Placental position is anterior, without previa. Placental Jackson measuring 5.7 x 2.6 x 2.6 cm. Amniotic fluid index: 9.6 cm, normal range is 5-24 cm. Single deepest vertical pocket is 5.2 cm. heart rate: 131 beats per minute. Maternal cervical canal: 3.5 cm long. Normal lower limit is 2.5 cm. biometrics: Biparietal diameter: 4.9 cm, 20 weeks 6 days Head circumference: 18.3 cm, 20 weeks 5 days Abdominal circumference: 14.6 cm, 19 weeks 6 days Femur length: 3.5 cm, 21 weeks 0 days Clinically estimated gestational age: 20 weeks 5 days Composite gestational age from present scan: 20 weeks 5 days Estimated weight and percentile: 355 g, 31st percentile Anatomic survey: Neuro: Ventricles are non-dilated at less than 10 mm. Cisterna magna is normal at 3-11 mm. Cerebellum is normal in size and morphology. Nuchal skin fold: Normal at less than 6 mm between 14-21 weeks gestational age. Face: Not well seen. Spine: No evidence for spina bifida. Heart: Not well seen. Diaphragm: Not well seen. Stomach: Left-sided stomach is present. Kidneys: No hydronephrosis. Normal is less than 5 mm in 2nd trimester, less than 7 mm in 3rd trimester. Cord: 3-vessel cord has orthotopic insertion. Bladder: Normal in size. Extremities: All 4 extremities identified. IMPRESSION: 1. [place] living intrauterine at 20 weeks 5 days based on today's ultrasound. Fetus is in the 31st percentile for weight. 2. Normal amniotic fluid. Placental Jackson. Otherwise unremarkable placenta. 3. facial structures, heart, and diaphragm are not well seen due to position and acoustic windows. Otherwise normal anatomic survey. Recommend follow-up OB ultrasound. We strive to produce accurate, complete, and clear reports of imaging services. To assist us in improving patient care, this report was composed using standard report templates and voice recognition software. Therefore, it may contain abnormal punctuation, insertions and/or omissions. Occasional wrong-word or sound-alike substitutions may occur. Though we review the report and make efforts to correct it, we do recommend that the report be read carefully in proper context to recognize any text inaccuracies. Dictated by: Juan Rivas M.D. on 04/02/2025 at 23:10 Approved by: Juan Rivas M.D. on 04/02/2025 at 23:20
== END ==
PROVIDERS: Referring Provider Obstetrics & Gynecology; Visit Provider Obstetrics & Gynecology
DX: Z34.82 Encounter for supervision of other normal pregnancy, second trimester (principal); Z3A.20 20 weeks gestation of pregnancy
CPT/HCPCS: 76801

== ENCOUNTER → 2025-04-11 14:32 | Outpatient (CLI) | payer OTHER, SELFPAY ==
[2022-01-30 12:45] VITALS: BMI 41.0
[2025-04-14 19:35] LABS: Gest Age on Col Date 22.0 weeks (.); OSBR Risk 1IN 5251 (.)
== END ==
PROVIDERS: Referring Provider Obstetrics & Gynecology; Visit Provider Obstetrics & Gynecology
DX: Z34.80 Encounter for supervision of other normal pregnancy, unspecified trimester (principal); Z3A.22 22 weeks gestation of pregnancy
CPT/HCPCS: 36415; 82105

== ENCOUNTER 2025-05-23 14:48 | Observation (INO) | payer OTHER, SELFPAY ==
[2025-05-23 14:42] VITALS: BMI 41.0
[2025-05-23 18:00] LABS: GTT (PREG) 1 Hour PP 50gm Dose 127 mg/dL (76-139)
[2025-05-23 20:07] LABS: Add Manual Diff / Slide Review NO; Hematocrit 35.2 % (36-46); Hemoglobin 11.9 g/dL (12.0-16.0); Lymphocytes Absolute Auto 1900 /uL (1100-4500); Mean Corpuscular HGB Conc 33.9 % (30-36); Mean Corpuscular Hemoglobin 28.7 PG (26-34); Mean Corpuscular Volume 84.7 fL (80-100); Platelet Count 201 X10^3/uL (150-400)
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
== END 2025-05-23 18:36 | disposition home or self-care (01) ==
PROVIDERS: Admitting Provider Obstetrics & Gynecology; Referring Provider Obstetrics & Gynecology; Visit Provider Obstetrics & Gynecology
DX: O9A.213 Injury, poisoning and certain other consequences of external causes complicating pregnancy, third trimester (principal); W54.1XXA Struck by dog, initial encounter; Z3A.28 28 weeks gestation of pregnancy
CPT/HCPCS: 36415; 59025; 59050; 76815; 82950; 85025; G0378; G0379

== ENCOUNTER 2025-06-09 23:33 | Observation (INO) | payer OTHER, SELFPAY ==
[2025-06-10 00:32] LABS: Add Manual Diff / Slide Review NO; Hematocrit 35.3 % (36-46); Hemoglobin 11.9 g/dL (12.0-16.0); Lymphocytes Absolute Auto 2900 /uL (1100-4500); Mean Corpuscular HGB Conc 33.8 % (30-36); Mean Corpuscular Hemoglobin 28.4 PG (26-34); Mean Corpuscular Volume 84.2 fL (80-100); Platelet Count 199 X10^3/uL (150-400)
[2025-06-10 01:12] LABS: Appearance Urine UA Clear; Color Urine UA YELLOW; Glucose Urine UA NEGATIVE (Negative); Ketones Urine UA 1+ (NEGATIVE); Occult Blood Urine UA NEGATIVE (Negative); Protein Urine UA NEGATIVE (Negative); Specific Gravity Urine UA <=1.005 (1.000-1.035); pH Urine UA 7.0 (4.5-8.0)
[2025-06-10 01:13] LABS: Bilirubin Urine UA NEGATIVE (NEGATIVE); Culture Indicated Urine Cult Not Indicated; Leukocyte Esterase Urine UA NEGATIVE (NEGATIVE); Nitrite Urine UA NEGATIVE (Negative); Urobilinogen Urine UA 0.2 E.U./dL (0.2)
[2025-06-10 01:23] LABS: Protein (Total) Urine Random 14 mg/dL (0-12); Protein Creatinine Ratio Urine 0.28 GRAM/24H
[2025-06-10 01:24] LABS: Alanine Aminotransferase 20 IU/L (<35); Albumin 3.6 g/dL (3.5-5.0); Albumin Globulin Ratio 1.2 (1.0-2.8); Alkaline Phosphatase 63 U/L (38-126); Blood Urea Nitrogen 4 mg/dL (7-17); Calcium 9.2 mg/dL (8.4-10.2); Carbon Dioxide 20 mmol/L (22-32); Chloride 106 mmol/L (98-107); Estimated Glomerular Filt Rate > 60 mL/min (>60); Globulin 3.0 g/dL (1.7-4.1); Glucose 116 mg/dL (70-99); HEMOLYSIS < 15 (0-50); Potassium 3.4 mmol/L (3.4-5.1); Sodium 133 mmol/L (137-145); Total Protein 6.6 g/dL (6.3-8.2)
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
== END 2025-06-10 03:49 | disposition home or self-care (01) ==
PROVIDERS: Admitting Provider Obstetrics & Gynecology; Referring Provider Obstetrics & Gynecology; Visit Provider Obstetrics & Gynecology
DX: O36.8130 Decreased fetal movements, third trimester, not applicable or unspecified (principal); O26.893 Other specified pregnancy related conditions, third trimester; R10.20 Pelvic and perineal pain unspecified side; M54.50 Low back pain, unspecified; Z3A.30 30 weeks gestation of pregnancy
CPT/HCPCS: 36415; 59025; 59050; 76815; 80053; 81001; 82570; 84112; 84156; 85025; 87210; G0378; G0379

== ENCOUNTER 2025-06-19 16:58 | Outpatient (CLI) | payer OTHER, SELFPAY | END 2025-06-19 17:53 | disposition home or self-care (01) | LOC: LABOR 17:24 → OB 06-20 10:49 | PROVIDERS: Referring Provider Obstetrics & Gynecology; Visit Provider Obstetrics & Gynecology | DX: O99.213 Obesity complicating pregnancy, third trimester (principal); E66.9 Obesity, unspecified; Z3A.31 31 weeks gestation of pregnancy | CPT/HCPCS: 59025; G0378; G0379 ==

== ENCOUNTER 2025-06-23 14:49 | Outpatient (CLI) | payer OTHER, SELFPAY | END 2025-06-23 15:40 | disposition home or self-care (01) | LOC: OB 06-25 12:13 | PROVIDERS: Referring Provider Emergency Medicine; Visit Provider Student in an Organized Health Care Education/Training Program | DX: O99.213 Obesity complicating pregnancy, third trimester (principal); Z3A.32 32 weeks gestation of pregnancy | CPT/HCPCS: 59025; G0378; G0379 ==

== ENCOUNTER 2025-07-11 16:04 | Outpatient (CLI) | payer OTHER, SELFPAY | END 2025-07-11 16:46 | disposition home or self-care (01) | LOC: OB 07-12 08:31 | PROVIDERS: Referring Provider Obstetrics & Gynecology; Visit Provider Obstetrics & Gynecology | DX: O47.03 False labor before 37 completed weeks of gestation, third trimester (principal); O99.213 Obesity complicating pregnancy, third trimester; E66.9 Obesity, unspecified; Z3A.35 35 weeks gestation of pregnancy | CPT/HCPCS: 59025; G0378; G0379 ==

== ENCOUNTER → 2025-07-18 08:59 | Outpatient (CLI) | payer OTHER, SELFPAY ==
[2025-07-19 11:00] LABS: Strep Grp B PCR POS for Grp B Strep
== END ==
PROVIDERS: Visit Provider Obstetrics & Gynecology
DX: Z36.85 Encounter for antenatal screening for Streptococcus B (principal)
CPT/HCPCS: 87653

== ENCOUNTER 2025-07-18 09:50 | Outpatient (CLI) | payer OTHER, SELFPAY ==
[2025-07-18 09:48] VITALS: BMI 41.0
== END 2025-07-18 10:45 | disposition home or self-care (01) ==
LOC: LABOR 10:17 → OB 14:15
PROVIDERS: Referring Provider Obstetrics & Gynecology; Visit Provider Obstetrics & Gynecology
DX: O36.5130 Maternal care for known or suspected placental insufficiency, third trimester, not applicable or unspecified (principal); O99.213 Obesity complicating pregnancy, third trimester; E66.9 Obesity, unspecified; Z3A.36 36 weeks gestation of pregnancy
CPT/HCPCS: 59025; 84112; 87186; 87653; G0378; G0379

== ENCOUNTER 2025-07-23 19:53 | Outpatient (CLI) | payer OTHER, SELFPAY | END 2025-07-23 21:04 | disposition home or self-care (01) | LOC: OB 07-24 11:28 | PROVIDERS: Referring Provider Student in an Organized Health Care Education/Training Program; Visit Provider Student in an Organized Health Care Education/Training Program | DX: Z03.71 Encounter for suspected problem with amniotic cavity and membrane ruled out (principal); O99.213 Obesity complicating pregnancy, third trimester; E66.9 Obesity, unspecified; Z3A.36 36 weeks gestation of pregnancy | CPT/HCPCS: 59025; 84112; G0378; G0379 ==

== ENCOUNTER 2025-07-25 19:08 | Outpatient (CLI) | payer OTHER, SELFPAY | END 2025-07-25 20:21 | disposition home or self-care (01) | LOC: OB 07-26 06:54 | PROVIDERS: PCP Obstetrics & Gynecology; Referring Provider Obstetrics & Gynecology; Visit Provider Obstetrics & Gynecology | DX: O47.1 False labor at or after 37 completed weeks of gestation (principal); O99.213 Obesity complicating pregnancy, third trimester; E66.9 Obesity, unspecified; Z3A.37 37 weeks gestation of pregnancy | CPT/HCPCS: 59025; 84112; G0378; G0379 ==

== ENCOUNTER 2025-07-27 12:02 | Observation (INO) | payer OTHER, SELFPAY | END 2025-07-27 12:44 | disposition home or self-care (01) | LOC: LABOR 12:03 | PROVIDERS: Admitting Provider Obstetrics & Gynecology; Referring Provider Obstetrics & Gynecology; Visit Provider Obstetrics & Gynecology | DX: O36.5930 Maternal care for other known or suspected poor fetal growth, third trimester, not applicable or unspecified (principal); E66.9 Obesity, unspecified; O99.213 Obesity complicating pregnancy, third trimester; Z3A.37 37 weeks gestation of pregnancy | CPT/HCPCS: G0378; G0379 ==

== ENCOUNTER 2025-07-30 19:59 | Inpatient (IN) | payer OTHER, SELFPAY ==
[2025-07-30 20:15] VITALS: BP 129/59
[2025-07-30 21:41] LABS: Add Manual Diff / Slide Review NO; Hematocrit 39.2 % (36-46); Hemoglobin 13.3 g/dL (12.0-16.0); Lymphocytes Absolute Auto 1900 /uL (1100-4500); Mean Corpuscular HGB Conc 33.8 % (30-36); Mean Corpuscular Hemoglobin 28.1 PG (26-34); Mean Corpuscular Volume 83.2 fL (80-100); Platelet Count 208 X10^3/uL (150-400)
[2025-07-30] MEDS: LACTATED RINGERS 1,000 ML 100 ML IV (21:55)
[2025-07-30 23:57] VITALS: BP 129/59
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
[2025-07-31] MEDS: LACTATED RINGERS 1,000 ML 100 ML IV (09:34)
[2025-07-31] MEDS: OXYTOCIN PREMIX 30 UNIT/500 ML PLAST..BAG IV (09:35)
[2025-07-31] MEDS: fentaNYL 100 MCG/2 ML INJ IV (16:21)
--- NOTE | 2025-07-31 19:04 | PM.OBPNLAB ---
Date/Time Date Patient Seen: 07/31/25 Time Patient Seen: 19:04 Pain Control Pain control: tolerating well and epidural Pelvic Exam Dilation (cm): 6 Effacement (%): 70 station: -3 Amniotic membrane status: Bulging Comments: AROM, large volume clear fluid Contractions Contractions on admission: irregular Monitor mode: External Pitocin rate (mU/min): 4 Contraction frequency (min): 5 Contraction pattern: Regular Contraction intensity: Mild Status status: Category l Heart Rate Baseline: 140 Monitor Accelerations: Present Monitor Decelerations: Absent Monitor Variability: Moderate Assessment and Plan Assessment: active labor Plan: continuous present management Comments: continue IV pitocin CEFM/toco plan for interval SVE 2-4h, consider IUPC at that time if no change anticipate
--- NOTE | 2025-07-31 19:42 | PM.AN.REGBLK ---
Regional Block Pre-procedure ASA Class: III Labs: Hct 39.2 % (36-46) 07/30/25 21:20 Plt Count 208 X10^3/uL (150-400) 07/30/25 21:20 Medications: Current Medications Generic Name Dose Route Start Last Admin Trade Name Sade PRN Reason Stop Dose Admin Carboprost Tromethamine 250 mcg 07/30/25 21:00 Carboprost 250 Mcg/Ml Ampul IM Q90M PRN Bleeding Tranexamic Acid 1,000 mg/ 100 mls @ 600 mls/hr 07/30/25 21:00 Sodium Chloride IV NOW PRN Bleeding Cefazolin Sodium 1 gm/ Sodium 100 mls @ 200 mls/hr 07/31/25 05:00 07/31/25 17:14 Chloride IV 200 mls/hr Q8H URSULA Administration Oxytocin/Lactated Ringer's 30 unit in 500 mls @ 200 mls/hr 07/30/25 21:00 Oxytocin Premix IV CONT PRN Bleeding Protocol Oxytocin/Lactated Ringer's 30 unit in 500 mls @ 2 mls/hr 07/31/25 09:10 07/31/25 09:35 Oxytocin Premix IV 2 milliunit/min TITRATE URSULA 2 mls/hr Protocol Administration 2 MILLIUNIT/MIN Lidocaine HCl 20 ml 07/30/25 21:00 Lidocaine 1% 20 Ml INJ INTRA-OP PRN Post Delivery Methylergonovine Maleate 0.2 mg 07/30/25 21:00 Methylergonovine 0.2 Mg/Ml Vial IM NOW PRN Bleeding Methylergonovine Maleate 0.2 mg 07/30/25 21:00 Methylergonovine 0.2 Mg Tablet PO Q6HR PRN Heavy Bleeding Mineral Oil 30 ml 07/30/25 21:00 Mineral Oil 30 Ml Udc TOP PRN PRN Version Misoprostol 50 mcg 07/30/25 21:00 07/31/25 03:21 Misoprostol 25 Mcg Tablet PO 50 mcg Q4H PRN Administration cervical ripening Misoprostol 400 mcg 07/30/25 21:00 Misoprostol 200 Mcg Tablet SL NOW PRN Bleeding Misoprostol 800 mcg 07/30/25 21:00 Misoprostol 200 Mcg Tablet MN NOW PRN Bleeding Naloxone HCl 0.2 mg 07/30/25 21:00 Naloxone 0.4 Mg/Ml Vial IV Q2MIN PRN Opiate Reversal Ondansetron HCl 4 mg 07/31/25 11:09 Ondansetron 4 Mg/2 Ml Inj IV Q4HR PRN Nausea And Vomiting Oxytocin 10 unit 07/30/25 21:00 Oxytocin 10 Unit/Ml Vial IM NOW PRN Bleeding Allergies: Allergies Allergy/AdvReac Type Severity Reaction Status Date / Time hydromorphone (From Dilaudid) Allergy Severe Anxiety, Verified 07/30/25 21:01 Hallucinations, Nausea, Vomiting Penicillins Allergy Severe Childhood Verified 07/30/25 21:01 Rxn, unknown codeine (From Allergy Mild ITCHING Verified 07/30/25 21:01 Tylenol-Codeine #3) buspirone AdvReac Severe Violent, Verified 07/30/25 21:01 Anger adhesive tape AdvReac Mild ITCHING Verified 07/30/25 21:01 Procedure Insertion date: 07/31/25 Insertion time: 17:22 Prep/Local: betadine x3 (CHG) and 1% lidocaine (3mL) Interspace: L4/5 Patient position: sitting Needle: 17 gauge Tuohy Loss of resistance with: saline JOSIAH at (cm): 9 (max skin tenting) Catheter placed at SKIN (cm): 14 Initial Medications TEST DOSE time: 17:24 TEST DOSE: 1.5% lidocaine with epinephrine 1:200k (mL): 3 Infusion INFUSION: 0.125% bupivacaine and with fentanyl 2 mcg/mL Initial rate (mL/hr): 10 Post-procedure Anesthesia date START: 07/31/25 Anesthesia time START: 17:08 Anesthesia date END: 07/31/25 Anesthesia time END: 21:12 Post-procedure Anesthesia Assessment: Yes CV function: HR/BP stable, Yes Resp function: RR/sat/airway adequate, Yes Post-op hydration adequate, Yes Pain control adequate, Yes Nausea & vomiting absent, Yes Temperature > 36 C and Yes Mental status appropriate
--- NOTE | 2025-07-31 21:29 | PM.OBPRVD ---
Events: Other ( growth restriction) Labor & Delivery Delivery date: 07/31/25 Delivery Time: 21:12 Intrapartal Events: None Cervical ripening method: per misoprostal protocol Induction method: per pitocin protocol Delivery augmentation: rupture of membranes Delivery monitor: external FHT Route of delivery: Episiotomy description: None L&D Laceration Description: None Estimated blood loss (mL): 150 Anesthesia Type: Epidural Complications: none Narrative: Pt in dorsal lithotomy position, C/C/+2. With excellent maternal effort head delivered in straight OA position after 2 contractions. Nuchal cord identified and reduced. Gentle downward traction applied with noted impaction of anterior shoulder. [place] manuever performed with immediate release and anterior shoulder delivered <10s followed by posterior shoulder and body. placed on maternal abdomen. Delayed cord clamping x1min, cord clamped x2 and cut by family member. 3VC noted. Cord blood sample collected and passed off of field. Active management of 3rd stage with gentle downward traction applied to cord, delivery of intact placenta at 2119. Perineal exam performed without evidence of laceration, fundus firm with appropriate lochia. Counts correct x2, no complications. Baby 1: gender: Female Presentation: vertex Position: Right Occiput Anterior Placenta delivery description: Spontaneous and Normal Configuration Cord Vessel Description: 3 Vessels, Nuchal Cord and Reduced score (1 min): 8 score (5 min): 9 Plan for aftercare: Routine care
[2025-07-31] MEDS: LANOLIN OINT 7 GM 1 APPLIC TOP (23:07)
[2025-07-31] MEDS: ACETAMINOPHEN 325 MG TABLET 650 MG PO (23:07)
[2025-07-31] MEDS: DERMOPLAST SPRAY 20% 60 ML 1 SPRAY TOP (23:08)
[2025-08-01] MEDS: ACETAMINOPHEN 325 MG TABLET 650 MG PO ×2 (05:15→11:31)
[2025-08-01] MEDS: IBUPROFEN 600 MG TABLET PO ×2 (05:15→11:31)
--- NOTE | 2025-08-01 16:05 | P.DS_ITS ---
Discharge Providers Provider Date of admission: 07/30/25 19:59 Discharge Date: 08/01/25 Primary care physician: Doctor Betsy MD Consults: 07/30/25 21:00 Consult to Anesthesiology Urgent Comment: Consulting Provider: Anesthesiologist Reason for consultation: Epidural 07/31/25 21:32 Consult to Organic Preparation Technician Routine Comment: 08/01/25 11:10 Consult to PET COUNSELOR - Office System Analyst Routine Comment: Office System Analyst Consult needed for:: Other reason (Comment) Comment: lack of transportation Discharge provider: Martha Wilson DO Summary Hospital Course Date Patient Seen: 08/01/25 Time Patient Seen: 16:05 Diagnoses: single live , Hospital Course: Patient is a 24yo G3 now P1021 presented to L&D for scheduled induction of labor at 37w6d due to growth restriction. Patient received misoprostol for cervical ripening and pitocin for augmentation of labor. she received an epidural for pain mangement and amniotomy noting clear fluid. she then quickly progressed to complete dilation and uncomplicated . Patient and baby healthy in room and discharged home on PPD 1 per patient preference. Peripartum Data Infant Delivery Method: Natural Vaginal Laceration Description: None Procedures: , epidural complications: none Status at Discharge Cognitive/behavioral status at discharge: oriented Functional status at discharge: independent ambulation Overall status at discharge: patient is back to baseline Time Spent with Patient Time attestation: Total time spent providing and/or coordinating discharge services: Time spent: Less than 30 minutes Objective Labs 07/30/25 21:20 Labs: Laboratory Results - last 24 hr 08/01/25 08:19 Maternal Bleed Negative Exam Narrative Exam Narrative: General- AAO x 3, NAD abdomen- soft, uterus firm lochia- moerate LE- trace edema Discharge Plan Discharge Plan Patient Disposition: Home Discharge orders & Medications Prescriptions: Continued vit-ferrous sulfat-FA 27 mg iron- 0.8 mg tablet 1 tab PO DAILY ferrous fumarate 456 mg (150 mg iron) tablet 456 mg PO DAILY Discontinued aspirin 81 mg capsule 81 mg PO DAILY Follow up/Referrals: Doctor Meyer MD [Primary Care Provider, Medical] Diet/Activity/Treatments Diet: Regular Activity: pelvic rest x 6 weeks Skin/Wound/Dressing Care Report to your healthcare provider any signs of infection, such as:: chills, fever, increased pain, unusual drainage and unusual redness Visit Report/Discharge Packet Stand Alone Forms: Patient Portal/API, Stroke Signs & Symptoms Discharge Data Primary Care Provider: Miscellaneous,Doctor
[2025-08-01] MEDS: RHO(D) IMMUNE GLOBULIN 1,500 UNIT SYRINGE 1500 UNIT IM (17:16)
[2025-08-01] MEDS: MEASLES,MUMPS,RUBELLA VACC/PF 0.5 ML VIAL SUBCUT (17:19)
[2025-08-01 17:37] VITALS: BP 121/76; PULSE 79; RESP 16; TEMP 36.2
== END 2025-08-01 18:10 | disposition home or self-care (01) | DRG 560 ==
PROVIDERS: Obstetrics & Gynecology; Admitting Provider Student in an Organized Health Care Education/Training Program; Referring Provider Student in an Organized Health Care Education/Training Program; Visit Provider Student in an Organized Health Care Education/Training Program
DX: O36.5930 Maternal care for other known or suspected poor fetal growth, third trimester, not applicable or unspecified (principal); O99.344 Other mental disorders complicating childbirth; F41.9 Anxiety disorder, unspecified; Z3A.37 37 weeks gestation of pregnancy; Z37.0 Single live birth; O99.824 Streptococcus B carrier state complicating childbirth; O43.893 Other placental disorders, third trimester; Z67.41 Type O blood, Rh negative
CPT/HCPCS: 36415; 59050; 59200; 85025; 85461; 86850; 86900; 86901; G0379; J0687; J0689; J2590; J2790; J3010; J7050; J7120